=== PATIENT | female | born 2000 | race Caucasian/White ===

== ENCOUNTER 2018-06-07 13:44 | Outpatient (CLI) | payer OTHER ==
[~2018-06-07 13:44] MED LIST: ALLEGRA-D 12 H1 EACH PO; PREVACID30 MG PO; ZANTAC300 MG PO
== END 2018-06-07 13:58 | disposition home or self-care (01) ==
LOC: SONOGRAMA 13:44
DX: N64.4 Mastodynia (principal); Z80.3 Family history of malignant neoplasm of breast

== ENCOUNTER 2024-06-24 16:13 | Outpatient (CLI) | payer OTHER | END 2024-06-24 16:26 | disposition home or self-care (01) | LOC: RAD 16:13 | PROVIDERS: ATTEND Orthopaedic Surgery | DX: S93.492A Sprain of other ligament of left ankle, initial encounter (principal); M79.672 Pain in left foot ==